=== PATIENT | male | born 1950 | race Caucasian/White ===

== ENCOUNTER → 2017-05-28 | Outpatient (CLI) | payer MEDICARE | LOC: HEART 5 08:23 | DX: R06.02 Shortness of breath (principal); Z79.899 Other long term (current) drug therapy | CPT/HCPCS: 94060; 94729 ==

== ENCOUNTER 2021-03-26 14:08 | Inpatient (IN) | payer MEDICARE ==
[~2021-03-26] VITALS: Ht 167.6 cm; Wt 62.6 kg
[2021-03-26 15:14] LABS: HEMOGLOBIN 14.1 gm/dl (14.0-17.5); RED BLOOD COUNT 4.87 M/UL (4.20-5.50); WHITE BLOOD COUNT 10.4 K/UL (4.5-11.0)
[2021-03-26 15:27] LABS: BUN/CREATININE RATIO 8 (0-10)
[2021-03-26] MEDS ORDERED: DIGOXIN125 MCG PO (22:04)
[2021-03-26] MEDS ORDERED: ELIQUIS5 MG PO (22:05)
[2021-03-26] MEDS ORDERED: ZOLOFT25 MG PO (22:05)
[2021-03-26] MEDS ORDERED: LISINOPRIL2.5 MG PO (22:05)
[2021-03-27 07:08] LABS: HEMOGLOBIN 14.9 gm/dl (14.0-17.5); RED BLOOD COUNT 4.97 M/UL (4.20-5.50)
[2021-03-27 07:20] LABS: WHITE BLOOD COUNT 7.1 K/UL (4.5-11.0)
[2021-03-27 07:37] LABS: BUN/CREATININE RATIO 14 (0-10)
[2021-03-27] MEDS ORDERED: ALBUTEROL1.25 MG/3 INH (11:33)
[2021-03-27] MEDS ORDERED: AZITHROMYCIN250 MG PO (11:34)
[2021-03-27] MEDS ORDERED: COZAAR 25MG TAB25 MG PO (11:34)
[2021-03-27] MEDS ORDERED: CRESTOR10 MG PO (11:34)
[2021-03-27] MEDS ORDERED: FLOMAX 0.4 MG0.4 MG PO (11:35)
[2021-03-27] MEDS ORDERED: SOTALOL80 MG PO (11:35)
[2021-03-27] MEDS ORDERED: VITAMIN B-121000 MC3 PO (11:36)
[2021-03-27] MEDS ORDERED: ASPIRIN CHEWABL81 MG PO (11:36)
[2021-03-27] MEDS ORDERED: DAILY VALUE1 EACH PO (11:36)
[2021-03-27] MEDS ORDERED: ZINC50 M2 PO (11:37)
[2021-03-27] MEDS ORDERED: VITAMIN C500 M4 PO (11:37)
[2021-03-27] MEDS ORDERED: TYLENOL325 MG PO (11:37)
[2021-03-27] MEDS ORDERED: VITAMIN D250 MCG PO (11:37)
[2021-03-27] MEDS ORDERED: IBUPROFEN800 MG PO (11:38)
[2021-03-28 07:12] LABS: RED BLOOD COUNT 4.99 M/UL (4.20-5.50)
[2021-03-28 07:13] LABS: WHITE BLOOD COUNT 15.8 K/UL (4.5-11.0)
[2021-03-28 07:40] LABS: BUN/CREATININE RATIO 20 (0-10)
--- NOTE | 2021-03-28 23:30 | NUR ---
Patient continuously keeps leaving room (Patient Covid +). Patient states "I am going to my truck and going home." or that "my is picking me up." Each time patient has been re-oriented to his location and that he cannot leave room/hospital at this time, he is becoming more agitated and irritable. notified. New orders for Geodon 10mg IV one-time. [facility]
[2021-03-29 09:27] LABS: BUN/CREATININE RATIO 18 (0-10)
[2021-03-30 10:39] LABS: BUN/CREATININE RATIO 14 (0-10)
[2021-03-30] MEDS ORDERED: DOXYCYCLINE HY100 MG PO (14:34)
[2021-03-30] MEDS ORDERED: SOTALOL80 MG PO (14:34)
[2021-03-30] MEDS ORDERED: ELIQUIS5 MG PO (14:34)
[2021-03-30] MEDS ORDERED: OMNICEF 300 MG300 MG PO (14:34)
[2021-03-30] MEDS ORDERED: DECADRON6 MG PO (14:53)
== END 2021-03-30 16:16 | disposition home or self-care (01) | DRG 177 ==
LOC: ER1 14:08 → CDU 18:14 → M/S 18:14 → CDU 20:09 → M/S 20:09
PROVIDERS: Family Medicine; ADMIT Internal Medicine
PROC: 8E0ZXY6 Isolation (ICD-10-PCS; principal; 2021-03-26)
PROC: XW033E5 Introduction of Remdesivir Anti-infective into Peripheral Vein, Percutaneous Approach, New Technology Group 5 (ICD-10-PCS; 2021-03-27)
PROC: 3E0333Z Introduction of Anti-inflammatory into Peripheral Vein, Percutaneous Approach (ICD-10-PCS; 2021-03-27)
PROC: XW13325 Transfusion of Convalescent Plasma (Nonautologous) into Peripheral Vein, Percutaneous Approach, New Technology Group 5 (ICD-10-PCS; 2021-03-27)
DX: U07.1 COVID-19 (principal); J12.82 Pneumonia due to coronavirus disease 2019; G92 Toxic encephalopathy; I50.22 Chronic systolic (congestive) heart failure; F05 Delirium due to known physiological condition; I11.0 Hypertensive heart disease with heart failure; E88.09 Other disorders of plasma-protein metabolism, not elsewhere classified; N40.0 Benign prostatic hyperplasia without lower urinary tract symptoms; I48.0 Paroxysmal atrial fibrillation; D72.828 Other elevated white blood cell count; T38.0X5A Adverse effect of glucocorticoids and synthetic analogues, initial encounter; Z79.01 Long term (current) use of anticoagulants; Z90.49 Acquired absence of other specified parts of digestive tract; Z83.6 Family history of other diseases of the respiratory system; Z91.048 Other nonmedicinal substance allergy status; Z79.82 Long term (current) use of aspirin
CPT/HCPCS: 36415; 71045; 71275; 80053; 82550; 82553; 83605; 83615; 83735; 84484; 85025; 85027; 85379; 85610; 86140; 86900; 86901; 86927; 87040; 87081; 93005; 94640; 94664; 94760; 96374; 99285; J0696; J1100; J2930; J3486; J7030; Q9967

== ENCOUNTER → 2021-04-16 | Outpatient (CLI) | payer MEDICARE ==
[~2021-04-16] MED LIST: ALBUTEROL1.25 MG/3 INH; ASPIRIN CHEWABL81 MG PO; AZITHROMYCIN250 MG PO; COZAAR 25MG TAB25 MG PO; CRESTOR10 MG PO; DAILY VALUE1 EACH PO; DECADRON6 MG PO; DIGOXIN125 MCG PO; DOXYCYCLINE HY100 MG PO; ELIQUIS5 MG PO; FLOMAX 0.4 MG0.4 MG PO; IBUPROFEN800 MG PO; LISINOPRIL2.5 MG PO; OMNICEF 300 MG300 MG PO; SOTALOL80 MG PO; TYLENOL325 MG PO; VITAMIN B-121000 MC3 PO; VITAMIN C500 M4 PO; VITAMIN D250 MCG PO; ZINC50 M2 PO; ZOLOFT25 MG PO
== END ==
LOC: KOH-I 09:41
DX: R05 Cough (principal)
CPT/HCPCS: 71046

== ENCOUNTER → 2021-05-21 | Outpatient (CLI) | payer MEDICARE | LOC: KOH-I 09:07 | DX: R06.02 Shortness of breath (principal); R20.8 Other disturbances of skin sensation; Z86.16 Personal history of COVID-19 | CPT/HCPCS: 71046 ==

== ENCOUNTER → 2021-10-08 | Outpatient (CLI) | payer MEDICARE | LOC: HEART 5 08:52 | DX: I20.9 Angina pectoris, unspecified (principal); I50.22 Chronic systolic (congestive) heart failure; R06.02 Shortness of breath; I08.0 Rheumatic disorders of both mitral and aortic valves; R94.39 Abnormal result of other cardiovascular function study | CPT/HCPCS: 78452; 93306; A9502; J2785 ==

== ENCOUNTER 2022-01-06 15:54 | Emergency (ER) | payer OTHER ==
[2022-01-06 17:18] LABS: RED BLOOD COUNT 5.24 M/UL (4.20-5.50); WHITE BLOOD COUNT 9.4 K/UL (4.5-11.0)
[2022-01-06 17:44] LABS: BUN/CREATININE RATIO 10 (0-10)
== END 2022-01-06 18:45 | disposition home or self-care (01) ==
LOC: ER1 15:54
PROVIDERS: Physician Assistant Medical
DX: S70.361A Insect bite (nonvenomous), right thigh, initial encounter (principal); I48.91 Unspecified atrial fibrillation; I10 Essential (primary) hypertension; W57.XXXA Bitten or stung by nonvenomous insect and other nonvenomous arthropods, initial encounter
CPT/HCPCS: 80053; 85025; 85610; 99283

== ENCOUNTER 2022-04-03 06:59 | Emergency (ER) | payer OTHER ==
[2022-04-03 08:37] LABS: HEMOGLOBIN 15.2 gm/dl (14.0-17.5); RED BLOOD COUNT 5.05 M/UL (4.20-5.50); WHITE BLOOD COUNT 7.9 K/UL (4.5-11.0)
[2022-04-03 08:58] LABS: BUN/CREATININE RATIO 10 (0-10)
== END 2022-04-03 10:27 | disposition home or self-care (01) ==
LOC: ER1 06:59
PROVIDERS: Physician Assistant
DX: K80.20 Calculus of gallbladder without cholecystitis without obstruction (principal); I10 Essential (primary) hypertension; I48.91 Unspecified atrial fibrillation; Z79.01 Long term (current) use of anticoagulants
CPT/HCPCS: 80053; 81001; 83605; 83690; 85025; 99284; Q9967